=== PATIENT | female | born 1990 ===

== ENCOUNTER 2021-05-03 09:05 | Outpatient (CLI) | payer OTHER ==
--- NOTE | 2021-05-03 14:52 | MRI Report ---
PROCEDURE: Knee RT W/O INDICATIONS: RIGHT KNEE PAIN TECHNIQUE: Noncontrast sagittal PD fast spin echo and T2 fast spin echo with fat saturation, sagittal 3-D gradie nt sequence with fat saturation; coronal T1 spin echo and PD fast spin echo with fat saturation, and axial PD fast spin echo with fat saturation through the knee. COMPARISON: None. FINDINGS: Image quality: Excellent. Menisci: The medial and lateral menisci demonstrate normal morphology and internal signal. The meni scal root ligaments appear intact. Cruciate ligaments: The anterior and posterior cruciate ligaments appear intact. Medial structures: The medial collateral ligament appears mildly thickened is suggestive of low-grad e sprain near its femoral insertion. The posterior oblique ligament, semimembranosus tendon insertio ns, and oblique popliteal ligament, and meniscocapsular junction appear intact. Visualized portions of the pes anserinus tendons appear normal. No abnormal bursal fluid. Lateral structures: The lateral collateral ligament, long and short heads of the biceps femoris tend on appear intact. The popliteus tendon appears normal; the popliteofibular ligament appears intact. The posterosuperior and anteroinferior popliteomeniscal fascicles appear intact. The arcuate and fa bellofibular ligaments appear intact, around the lateral inferior geniculate artery. Iliotibial band appears normal. Anterior structures: Distal quadriceps tendinosis at its superior patella insertion is seen. Tendinos is and low-grade partial-thickness tear involving proximal patella tendon at its inferior patella ins ertion is also noted. Patellar alignment is normal. No femoral trochlear dysplasia or ventral trochl ear prominence. No edema in the infrapatellar fat pad. Bones and cartilage: No bone marrow contusions or fractures. The cartilage of the medial and latera l femorotibial compartments appears normal in thickness. Low-grade chondromalacia patella involving i nferior lateral facet of patella cartilage is seen. Joint space: There is physiologic knee joint fluid. No Gandhi's cyst. Normal appearing synovial pli are incidentally noted. IMPRESSION: 1. No evidence of focal meniscal tear. Cruciate ligaments are intact. 2. Low-grade proximal MCL sprain near its femoral insertion. 3. Proximal patella tendinosis/low-grade partial thickness tear at its inferior patella insertion. 4. No marrow edema. No fracture or dislocation. Low-grade chondromalacia patella involving inferior a spect of lateral facet of patella cartilage. Reviewed by: Micah Winn MD on 05/03/2021 2:51 PM PDT Approved by: Micah Winn MD on 05/03/2021 2:51 PM PDT Station ID: [id number]
== END 2021-05-03 09:06 | disposition home or self-care (01) ==
LOC: DI 09:05
PROVIDERS: ATTEND Student in an Organized Health Care Education/Training Program
DX: S83.411A Sprain of medial collateral ligament of right knee, initial encounter (principal); S76.121A Laceration of right quadriceps muscle, fascia and tendon, initial encounter; M22.41 Chondromalacia patellae, right knee